=== PATIENT | female | born 2005 | race Caucasian/White ===

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

== ENCOUNTER 2023-02-14 14:29 | Inpatient (IN) | payer OTHER ==
[~2023-02-14] VITALS: Ht 165.1 cm; Wt 63.5 kg
--- NOTE | ~2023-02-14 | OR ---
[facility] [address] [place], [place] [address] Draft DATE OF OPERATION: 02/15/2023 SURGEON: Mario Alberto Akhtar DO PREOPERATIVE DIAGNOSES: 1. Intrauterine at 37 and one. 2. Intrauterine growth restriction with estimated weight 3rd percentile, AC less than the 1st percentile. 3. intolerance to induction/non-reassuring heart tracing. 4. Short interconception period. PROCEDURES PERFORMED: Primary low transverse delivery. ANESTHESIA: Spinal with postoperative TAP blocks. ICE PLATFORM SUPERVISOR: Dayana Vieira MD. ESTIMATED BLOOD LOSS: 500 mL. DRAINS: Soto to gravity. COMPLICATIONS: None. FINDINGS: Delivery of viable female , 4 pounds 12 ounces with Apgars of 9 and 9 in the FRITZ position via primary low-transverse incision. Nuchal cord x1 and meconium-stained fluid. Two vessel versus possible 3rd vessel per Pediatrics. Normal uterus, tubes, and ovaries. INDICATIONS: Ms. Borja is a very pleasant 17-year-old, G3, P2, female with IUP at 37 weeks and one day gestation, dated by 19-week ultrasound per ACOG guidelines. The patient with size less than dates and in the 3rd trimester, an ultrasound was performed that demonstrated growth restriction. MFM consultation was performed that demonstrated severe IUGR with PATIENT NAME: IRVIN BORJA OPERATIVE REPORT DATE OF : 03 REPORT #: [id number] PHYSICIAN: MARIO ALBERTO AKHTAR (CHAO) DO PCP: MARIO ALBERTO AKHTAR (CHAO) DO REPORT IS CONFIDENTIAL AND NOT TO BE RELEASED WITHOUT AUTHORIZATION [facility] [address] [place], [place] [address] Draft estimated weight 3rd percentile with AC less than the 1st percentile. During Maternal Medicine ultrasound, the fetus had episode of bradycardia and was sent to the local center at an outside hospital and heart tracing was reassuring. [facility] was contacted and recommended delivery at 37 weeks gestation. Interval antepartum testing was normal. movement was normal. The patient presented to the center this morning for Cytotec induction and upon initial placement of Cytotec, baby had a prolonged deceleration down to the 60s. Cytotec was immediately removed by the nurse and heart tracing was gently reassuring over night with an episode of bradycardia with the patient using the restroom. Discussed concern for fetus to not tolerate labor and recommended primary low transverse delivery. The patient understands and wishes to proceed with the procedure. TECHNIQUE: The patient was taken to the operating room where a time-out was performed to confirm correct patient and correct procedure. Spinal anesthesia was adequately established and the patient was prepped and draped in the supine position with a bump under the right hip. Soto catheter was then inserted and Ancef 2 g preoperatively was given per SCIP protocol. No heparin was indicated. Once spinal was noted to be adequate, a Pfannenstiel skin incision was made approximately 2-3 cm above the pubic symphysis and carried down to the fascia. The fascia was nicked in the midline. The fascial incision was extended bilaterally using curved Lindo scissors. Fascia was grasped with Leigh's, elevated, and the underlying rectus muscle dissected off bluntly and sharply using curved Lindo scissors. The rectus was divided bluntly in the midline and peritoneum was entered sharply. Peritoneal incision was extended cephalad caudad using sharp and blunt dissection. The lower uterine segment was identified and appeared normal with no pelvic adhesions. Jelani self retractor was placed and hysterotomy was then performed using a surgical scalpel for meconium-stained fluid. Hysterotomy was extended bilaterally using blunt dissection and the surgeon's hand was placed in the uterine cavity and the head elevated into the abdomen. Nuchal cord x1 was identified and this was reduced. The was then delivered with the assistance of fundal pressure without difficulty. The cord was doubly clamped and cut and the was vigorous and cried and handed to the waiting pediatric team for further care. Cord gases were obtained. The placenta was expressed, intact with a centrally inserted cord. [facility] report documented two vessel cord and on examination, the jet wiper felt there may be a very small 3rd vessel. This will be confirmed on pathologic evaluation of the placenta. The uterine cavity was cleared of any remaining products of conception or clot. Pitocin was administered per protocol. The uterus was then closed in two layers of 0 Monocryl, the 1st being a running locked suture and the 2nd being an imbricating suture in the vertical manner with excellent hemostasis and imbrication. The pelvis was irrigated, found to be hemostatic. The Jelani retractor was removed and peritoneum was reapproximated using 2-0 Vicryl in a running nonlocked manner. The rectus sheath was examined and made hemostatic with judicious use of Bovie electrocautery. The rectus was PATIENT NAME: IRVIN BORJA OPERATIVE REPORT DATE OF : 03 REPORT #: [id number] PHYSICIAN: MARIO ALBERTO AKHTAR (CHAO) PCP: MARIO ALBERTO AKHTAR (CHAO) DO REPORT IS CONFIDENTIAL AND NOT TO BE RELEASED WITHOUT AUTHORIZATION [address] [address] Draft then plicated loosely in the midline with three interrupted sutures of 0 Vicryl. The fascia was reapproximated using 0 Vicryl in a running nonlocked manner. Subcu was irrigated, made hemostatic with Bovie electrocautery, and reapproximated using 3-0 Vicryl. Skin was reapproximated using surgical ana cristina. The uterus was Crede'd for scant amount of blood. The patient remained in the OR for postoperative TAP block per Anesthesia. Sponge, needle and instrument count was correct x2 at the end of the procedure. Dr. Vieira was present and participated in all portions of the procedure. DO MARRY Nation/DUYL /[id number] Copies: ~ PATIENT NAME: IRVIN BORJA OPERATIVE REPORT DATE OF : 03 REPORT #: [id number] PHYSICIAN: MARIO ALBERTO AKHTAR (CHAO) PCP: MARIO ALBERTO AKHTAR) REPORT IS CONFIDENTIAL AND NOT TO BE RELEASED WITHOUT AUTHORIZATION
--- OUTSIDE RECORDS SUMMARY | ~2023-02-14 | XMS | Continuity of Care Document ---
Demographics + + + | Address | [address] | | | [place] [address] | + + + | Preferred Language | Unknown | + + + | Marital Status | | + + + | Church Affiliation | Unknown | + + + | Race | White | + + + | Ethnic Group | Not or | + + + Author + + + | Author | [facility] | + + + | Organization | [facility] | + + + | Address | [address] | | | [place] [address] | + + + | Phone | | + + + Care Team Providers + + + + | Care Lockstitch Binder Name | Role | Phone | + + + + Unavailable | Unavailable | + + + + Allergies No information. Encounters No information. Functional Status No information. Immunizations No information. Medications No information. Problems + + + + | date | description | facility | + + + + | 2023-01-25 13:21 | [facility] | [facility] | | | SUSP POOR FETL GRWERO, THIRD | | | | TRI, [facility] | | + + + + | 2023-01-25 13:21 | UNSPECIFIED ABDOMINAL PAIN | [facility] | | | | | + + + + | 2023-01-25 13:21 | 36 WEEKS GESTATION OF | [facility] | | | | | + + + + | 2023-02-03 10:53 | [facility] | [facility] | | | SUSP POOR FETL GR | | + + + + | 2023-02-03 10:53 | [facility] | [facility] | | | SUSP POOR FETL GRTH, UNSP | | | | [facility], [facility] | | + + + + | 2023-02-03 11:00 | [facility] | [facility] | | | SUSP POOR FETL GR | | + + + + | 2023-02-10 11:48 | [facility] | [facility] | | | SUSP POOR FETL GR | | + + + + | 2023-02-10 11:48 | [facility] | [facility] | | | SUSP POOR FETL GRTH, UNSP | | | | TRI, [facility] | | + + + + | 2023-02-10 11:48 | 36 WEEKS GESTATION OF | [facility] | | | | | + + + + | 2023-02-10 12:00 | [facility] | [facility] | | | SUSP POOR FETL GR | | + + + + | 2023-02-18 13:00 | [facility] | [facility] | | | SUSP POOR FETL GR | | + + + + Procedures No information. Results/Labs No information. Social History +--------+ + + | date | description | facility | +--------+ + + Vital Signs No information."
[2023-02-15 00:40] LABS: HEMATOCRIT 32.5 % (35.0-50.0); MCH 30.1 (27-36); MCHC 33.8 g/dl (30-36); MCV 89.1 fl (81-99); RBC 3.64 M/ul (4.3-5.7); RDW 14.7 (10.5-15.0)
[2023-02-15 00:44] VITALS: BP 111/72
[2023-02-15 00:44] LABS: AMPHETAMINES, UR NEGATIVE (NEGATIVE); MARIJUANA (THC), UR POSITIVE (NEGATIVE)
[2023-02-15 00:45] LABS: BARBITURATES, UR NEGATIVE (NEGATIVE); BENZODIAZEPINES, UR NEGATIVE (NEGATIVE); BUPRENORPHINE,UR NEGATIVE (NEGATIVE); COCAINE, UR NEGATIVE (NEGATIVE); MDMA, UR NEGATIVE (NEGATIVE); METHADONE, UR NEGATIVE (NEGATIVE); METHAMPHETAMINE, UR NEGATIVE (NEGATIVE); OPIATES, UR NEGATIVE (NEGATIVE); OXYCODONE, UR NEGATIVE (NEGATIVE); PHENCYCLIDINE, UR NEGATIVE (NEGATIVE); TRICYCLIC ANTIDEPRESSANT, UR NEGATIVE (NEGATIVE)
[2023-02-15 00:54] LABS: INFLUENZA B NAA NEGATIVE (NEGATIVE); RESPIRATORY SYNCYTIAL VIR NAA NEGATIVE (NEGATIVE)
[2023-02-15 01:14] LABS: ABO O; RH POSITIVE
[2023-02-15 01:15] LABS: ANTIBODY SCREEN NEGATIVE
--- NOTE | 2023-02-15 08:33 | NUR ---
02/15/23 0833 Yaneth Serrano 0812 PT ARRIVED TO ROOM 105, PT DENIES CONCERNS AND VSS. IV INFUSING LR WITH 30 PIT. SITE WNL. HOB INCREASED SLIGHTLY. 0825 PT EATNIG ICE CHIPS AND DENIES CONCERNS.
[2023-02-15 08:40] VITALS: BP 97/60
--- NOTE | 2023-02-15 13:41 | NUR ---
IN ROOM WITH PT AND BABY. BABY RESTING QUIETLY IN [place]. I EXERCISED MINISTRY OF PRESENCE AND PT TALKED OF EXTENDED FAMILY. CONSENTED TO PRAYER. PRAYED FOR GOOD BEGININGS AND ONGOING BLESSING.
[2023-02-16 05:24] LABS: HEMOGLOBIN 9.2 g/dL (12.0-18.0); MCH 29.6 (27-36); MCHC 32.8 g/dl (30-36); RBC 3.12 M/ul (4.3-5.7); RDW 14.7 (10.5-15.0)
--- NOTE | 2023-02-17 09:15 | PR ---
[facility] [address] [place], [place] [address] Signed PP Progress Notes Datetime Report Generated by CPN: 02/17/2023 09:15 SUBJECTIVE: [id number] Pain: Within Normal Limits Nausea/Vomiting: Denies Flatus: Yes Bowel Movement: No Vital Signs: [id number] Vital Signs: Reviewed; Within Normal Limits EXAM: Ongoing Cardiovascular: Normal Respiratory: Normal Abdomen/Uterus: Normal Lochia: Normal Vulva/Perineum: Not Done Breasts: Not Done CVA Tenderness: Normal Extremities: Normal Incision: Normal Progress: Not Applicable Exam Comments: Fundus firm U-2 nontender IMPRESSION/PLAN/PROCEDURES: [id number] Impression: Normal Progression Plan: Remove Bonnie; Discharge Progress Notes: Pt seen and examined. Doing well. Ambulating, voiding, and tolerating full diet. Pain and lochia minimal. Bottlefeeding. No fevers/chills or other concerns. Desires d/c home today. Reviewed d/c instructions and medications. Reviewed plans for pp contraception; vasectomy and contraceptive patch. F/U 2wks / 6 wks pp visits Signing Physician: Mario Alberto Akhtar DO Copies: ~ *Electronically Signed* 02/17/23914 MARIO ALBERTO AKHTAR (CHAO) DO PATIENT NAME: IRVIN STEEL PROGRESS NOTE DATE OF : 03 PHYSICIAN: MARIO ALBERTO AKHTAR) DO RPT #: [id number] REPORT IS CONFIDENTIAL AND NOT TO BE RELEASED WITHOUT AUTHORIZATION
--- NOTE | 2023-02-18 12:19 | PATH ---
[facility] [address] [place], [place] [address] Signed SPECIMEN(S): A PLACENTA SPECIMEN SOURCE: A. PLACENTA CLINICAL HISTORY: Mother's age: 17. OB history: . Gestational age: 17. 's weight: 4 lbs. 12 oz. score: 9, 9. Length of umbilical cord at delivery: Normal. GBS negative. Specific issues of concern: Severe IUGR; intolerance to labor. FINAL PATHOLOGIC DIAGNOSIS: Placenta: - Immature 356 gram placenta with two-vessel umbilical cord. - Negative for significant chorioamnionitis or funisitis. - Placenta disc with focal hemorrhage. - Negative for significant placental disc infarction. JVR:lee MICROSCOPIC EXAMINATION: Histologic sections of all submitted blocks are examined by light microscopy. These findings, together with the gross examination, support the pathologic diagnosis. GROSS DESCRIPTION: The specimen, labeled and designated "[place], [place]" and designated on the requisition "placenta," is received fresh and placed in formalin and consists of brewster discoid placenta with the following parameters: Umbilical cord: Insertion eccentric, measurement 12.0 x 1.3 cm; vascular. Cord coiling index (per 10 cm): Three. Lesions: Not grossly identified. Membranes: Insertion site: Marginal, guerra/translucent. Other: Not grossly identified. Chorionic Plate: Normal radiating vascular pattern, blue-purple and shiny. Lesions: Not grossly identified. Other: Not grossly identified. Maternal Surface: Red-brown slightly unevenly distributed cotyledons, slightly disrupted. Lesions: Not grossly identified. Measurement: 14.7 x 13.3 x 3.7 cm. 356 g Cut Surface: Maroon and spongy. Lesions: One red-brown hemorrhagic cystic area (2.5 x 2.0 x 1.5 cm). Basal plate fibrin 0.1-0.2 cm in thickness. Other Findings: Not grossly identified. PATIENT NAME: IRVIN STEEL PATHOLOGY DATE OF : 03 REPORT #: [id number] PHYSICIAN: SAMANTHA PATHOLOGY PCP: MARIO ALBERTO FLORES (CHAO) DO REPORT IS CONFIDENTIAL AND NOT TO BE RELEASED WITHOUT AUTHORIZATION [facility] [address] [place], [place] [address] Signed Cassette Summary: (A1) membranes and umbilical cord (A2) placenta parenchyma (A3) placenta parenchyma with hemorrhagic cystic area (A4) placenta parenchyma AC (under the direct supervision of a pathologist) The Gross Description was prepared using a voice recognition system. The report was reviewed for accuracy; however, sound-alike word errors, addition and/or deletions may occur. If there is any question about this report, please contact Client Services. ADDITIONAL NOTES: Immunohistochemical and/or in situ hybridization studies if performed in this case included appropriate positive controls that reacted as expected. This test was developed and its performance characteristics determined by [facility]. It has not been cleared or approved by the U.S. Food and Drug Administration. The FDA has determined that such clearance or approval is not necessary. This test is used for clinical purposes. It should not be regarded as investigational or for research. [facility] is certified under the Clinical Laboratory Improvement Amendments of 1988 (CLIA) as qualified to perform high complexity clinical laboratory testing. PERFORMING LABORATORY: Technical component was performed by [facility], [address] [place] [id number] (CLIA# [id number]). Professional interpretation was performed by [facility], [address] [place] [address], [place] [address] (CLIA#: [id number]). Diagnostician: Suresh Vann MD Pathologist Electronically Signed 02/18/2023 Copies: ~ PATIENT NAME: IRVIN STEEL PATHOLOGY DATE OF : 03 REPORT #: [id number] PHYSICIAN: SAMANTHA PATHOLOGY PCP: MARIO ALBERTO FLORES (CHAO) DO REPORT IS CONFIDENTIAL AND NOT TO BE RELEASED WITHOUT AUTHORIZATION
== END 2023-02-17 12:39 | disposition home or self-care (01) | DRG 788 ==
LOC: FBC 14:29
PROVIDERS: ADMIT Obstetrics & Gynecology; ATTEND Obstetrics & Gynecology
PROC: 4A033R1 Measurement of Arterial Saturation, Peripheral, Percutaneous Approach (ICD-10-PCS; 2023-02-15)
PROC: 10D00Z1 Extraction of Products of Conception, Low, Open Approach (ICD-10-PCS; principal; 2023-02-15 07:00)
DX: O36.5930 Maternal care for other known or suspected poor fetal growth, third trimester, not applicable or unspecified (principal); Z3A.37 37 weeks gestation of pregnancy; O76 Abnormality in fetal heart rate and rhythm complicating labor and delivery; Z37.0 Single live birth; O69.1XX0 Labor and delivery complicated by cord around neck, with compression, not applicable or unspecified; O77.0 Labor and delivery complicated by meconium in amniotic fluid; Z20.822 Contact with and (suspected) exposure to COVID-19; O99.334 Smoking (tobacco) complicating childbirth; F17.210 Nicotine dependence, cigarettes, uncomplicated
CPT/HCPCS: 01961; 36415; 76942; 82803; 85027; 86850; 86900; 86901; 87502; 88305; 88307; A9270; J0690; J1100; J1885; J2001; J2274; J2405; J2590; J2795; J7121; U0002

== ENCOUNTER 2023-02-20 18:50 | Emergency (ER) | payer OTHER ==
[~2023-02-20] VITALS: Ht 152.4 cm; Wt 58.8 kg
[2023-02-20] MEDS ORDERED: IBUPROFEN800 MG PO (19:36)
[2023-02-20] MEDS ORDERED: HYDROCODON-ACE1 EA10 PO ×2 (19:36→22:32)
[2023-02-20 19:37] LABS: BASOPHILS 0.6 % (0-2); EOSINOPHILS 1.9 % (0-6); HEMATOCRIT 36.3 % (35.0-50.0); HEMOGLOBIN 12.1 g/dL (12.0-18.0); LYMPHOCYTES 16.2 % (24-44); MCH 29.9 (27-36); MCHC 33.2 g/dl (30-36); MONOCYTES 5.5 % (0-12); NEUTROPHILS 75.8 % (39-80); PLATELET COUNT 295 K/uL (140-440); RBC 4.03 M/ul (4.3-5.7); RDW 14.8 (10.5-15.0)
[2023-02-20 19:53] LABS: ALBUMIN 3.1 g/dL (3.4-5.0); ALBUMIN/GLOBULIN RATIO 0.7 (1.1-2.4); ANION GAP 14.6 (7-21); BILIRUBIN, TOTAL 0.5 ng/dL (0.2-1.0); BUN/CREATININE RATIO 27.27 (6.0-28.6); CALCIUM 9.1 mg/dL (8.5-10.1); CREATININE, SERUM 0.55 mg/dL (0.55-1.02); POTASSIUM 3.6 mmol/L (3.5-5.1); PROTEIN, TOTAL 7.5 g/dL (6.4-8.2)
[2023-02-20 21:42] LABS: BILIRUBIN, URINE NEGATIVE (negative); BLOOD/HGB, URINE MODERATE (Negative); KETONE, URINE SMALL (Negative); LEUK ESTERASE, URINE NEGATIVE (negative); NITRITE, URINE NEGATIVE (negative)
[2023-02-20 21:53] LABS: EPITHELIAL CELLS, URINE SQUAMOUS 1+ /lpf (0-1+); REFLEX CULTURE, URINE No (No); WHITE BLOOD CELLS, URINE 0-1 /HPF (0-5)
[2023-02-20] MEDS ORDERED: AMOX TR-K CLV1 EAC1 PO (22:32)
[2023-02-20 22:50] VITALS: BP 100/79
== END 2023-02-20 22:51 | disposition home or self-care (01) ==
LOC: ED 18:50
PROVIDERS: Family Medicine
DX: O86.12 Endometritis following delivery (principal); Z87.891 Personal history of nicotine dependence; Z79.899 Other long term (current) drug therapy
CPT/HCPCS: 36415; 74177; 80053; 81001; 85025; 96375; 99284-25; A9270; J2270; J2405; J2543; J7030; Q9967

== ENCOUNTER 2024-03-20 10:10 | Emergency (ER) | payer OTHER ==
[~2024-03-20] VITALS: Ht 152.4 cm; Wt 57.7 kg
[~2024-03-20 10:10] MED LIST changes: +AMOX TR-K CLV1 EAC1 PO; +HYDROCODON-ACE1 EA10 PO; +IBUPROFEN800 MG PO
[2024-03-20 10:42] LABS: BILIRUBIN, URINE NEGATIVE (negative); BLOOD/HGB, URINE LARGE (Negative); KETONE, URINE SMALL (Negative); LEUK ESTERASE, URINE SMALL (negative); NITRITE, URINE POSITIVE (negative)
[2024-03-20 10:47] LABS: RED BLOOD CELLS, URINE 0-1 /hpf (0-5); WHITE BLOOD CELLS, URINE >50 /HPF (0-5)
[2024-03-20 10:49] LABS: BACTERIA, URINE 1+ /hpf (negative); CASTS, URINE NONE SEEN \\lpf; COLLECTION TYPE, URINE CLEAN CATCH; CRYSTALS, URINE NONE SEEN (0-1+); EPITHELIAL CELLS, URINE SQUAMOUS 1+ /lpf (0-1+); REFLEX CULTURE, URINE Yes (No)
[2024-03-20] MEDS ORDERED: CEFDINIR300 MG PO (10:56)
[2024-03-20] MEDS ORDERED: KETOROLAC TROME10 MG PO (10:56)
[2024-03-20] MEDS ORDERED: PYRIDIUM200 MG PO (10:56)
[2024-03-20 11:02] VITALS: BP 104/60
== END 2024-03-20 11:03 | disposition home or self-care (01) ==
LOC: ED 10:10
PROVIDERS: Emergency Medicine
DX: N39.0 Urinary tract infection, site not specified (principal); Z87.891 Personal history of nicotine dependence; Z79.899 Other long term (current) drug therapy
CPT/HCPCS: 81001; 84703; 87088; 87186; 99283

== ENCOUNTER 2024-03-21 12:31 | Emergency (ER) | payer OTHER ==
[~2024-03-21] VITALS: Ht 165.1 cm; Wt 57.3 kg
[~2024-03-21 12:31] MED LIST changes: +CEFDINIR300 MG PO; +KETOROLAC TROME10 MG PO; +PYRIDIUM200 MG PO
--- OUTSIDE RECORDS SUMMARY | 2024-03-21 12:37 | XMS ---
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 Alai VISIT COUNT (12 MO.) 2 NICK Go[facility] TOTAL 2 NOTE: Visits indicate total known visits. ED/UCC VISIT TRACKING (12 MO.) 03/21/2024 12:31 [facility] [place] TYPE: Emergency COMPLAINT: - FEVER 03/20/2024 10:11 [facility] [place] TYPE: Emergency COMPLAINT: - FLANK PAIN INPATIENT VISIT TRACKING (12 MO.) No inpatient visits to display in this time frame [email or web address]
[2024-03-21 15:11] VITALS: BP 102/54
== END 2024-03-21 15:35 | disposition home or self-care (01) ==
LOC: ED 12:31
DX: N12 Tubulo-interstitial nephritis, not specified as acute or chronic (principal); Z87.891 Personal history of nicotine dependence
CPT/HCPCS: 84702; 99283